=== PATIENT | female | born 1950 | race Caucasian/White ===

== ENCOUNTER → 2018-03-21 | Outpatient (CLI) | payer BC, MEDICARE ==
--- NOTE | 2018-03-25 12:51 | MM ---
Reason for exam: screening (asymptomatic). Last mammogram was performed 2 years and 7 months ago. History: Patient is postmenopausal. Taking estrogen for 17 years 2 months beginning at age 41. Physical Findings: A clinical breast exam by your physician is recommended on an annual basis and results should be correlated with mammographic findings. MG 3D Screening Mammo W/Cad Bilateral CC and MLO view(s) were taken. Prior study comparison: August 23, 2015, bilateral MG 3d screening mammo w/cad. March 10, 2014, bilateral MG screening mammo w CAD. The breast tissue is heterogeneously dense. This may lower the sensitivity of mammography. Finding: There is an equal density (isodense), indistinct oval mass in the middle position of the left breast consistent with possible summation. New finding since August 23, 2015 and March 10, 2014. ASSESSMENT: Incomplete: need additional imaging evaluation, BI-RAD 0 RECOMMENDATION: Special view mammogram of the left breast. If lesion persists on supplemental views, image directed ultrasound is recommended. [facility] will attempt to contact patient to return for supplemental views and ultrasound if indicated.
== END | disposition home or self-care (01) ==
LOC: RADMAMWWP 09:43
PROVIDERS: ATTEND Family Medicine
DX: Z12.31 Encounter for screening mammogram for malignant neoplasm of breast (principal)
CPT/HCPCS: 77063; 77067

== ENCOUNTER → 2018-04-04 | Outpatient (CLI) | payer MEDICARE ==
--- NOTE | 2018-04-04 14:55 | MM ---
Reason for exam: additional evaluation requested from abnormal screening. Last mammogram was performed less than 1 month ago. History: Patient is postmenopausal. Taking estrogen for 17 years 2 months beginning at age 41. Physical Findings: Nurse did not find any significant physical abnormalities on exam. MG 3D Work Up W/Cad LT ML and spot compression MLO view(s) were taken of the left breast. Prior study comparison: March 21, 2018, bilateral MG 3d screening mammo w/cad. August 23, 2015, bilateral MG 3d screening mammo w/cad. The breast tissue is heterogeneously dense. This may lower the sensitivity of mammography. Finding: There is a typically benign 7 mm equal density (isodense), circumscribed oval mass located 6 cm from the nipple in the middle position of the left breast. Finding is persistent since March 21, 2018. These results were verbally communicated with the patient and result sheet given to the patient on 04/04/18. ASSESSMENT: Incomplete: need additional imaging evaluation, BI-RAD 0 RECOMMENDATION: Ultrasound of the left breast.
--- NOTE | 2018-04-04 14:58 | USB ---
Reason for exam: additional evaluation requested from abnormal screening. History: Patient is postmenopausal. Taking estrogen for 17 years 2 months beginning at age 41. US Breast Workup Limited LT Left limited breast ultrasound including focal area of concern, retroareolar and axilla demonstrates a 0.6 x 0.3 x 0.4cm cystic lesion at 12 o'clock corresponds to mammographic finding, benign, a 0.7 x 0.5 x 0.7cm mixed lesion at 2 o'clock for which a biopsy is recommended, a 0.4 x 0.3 x 0.4cm mixed lesion at 3 o'clock, recommendation to be made on pathology correlation of the larger adjacent mass, a 0.5cm node at the axilla and a 0.4cm node at the axilla. These results were verbally communicated with the patient and result sheet given to the patient on 04/04/18. ASSESSMENT: Suspicious, BI-RAD 4 RECOMMENDATION: Ultrasound core biopsy of the left breast. Called Dr. Prasad with mammographic findings and has scheduled an appointment for the patient for 04/09/18 at 2:[address] Carvajal. PRELIMINARY REPORT CALLED AND FAXED TO DR. CARVAJAL ON 04/04/18.
== END | disposition home or self-care (01) ==
LOC: RADMAMWWP 10:11
PROVIDERS: ATTEND Family Medicine
DX: R92.8 Other abnormal and inconclusive findings on diagnostic imaging of breast (principal)
CPT/HCPCS: 77065; 76642; G0279; 77061

== ENCOUNTER → 2020-03-18 | Outpatient (CLI) | payer MEDICARE ==
--- NOTE | 2020-03-23 10:41 | MM ---
Reason for exam: screening (asymptomatic). Last mammogram was performed 1 year and 11 months ago. History: Patient is postmenopausal. Benign ultrasound-guided core biopsy of the left breast, 2018. Taking estrogen for 18 years 2 months beginning at age 41. Physical Findings: A clinical breast exam by your physician is recommended on an annual basis and results should be correlated with mammographic findings. MG 3D Screening Mammo W/Cad Bilateral CC and MLO view(s) were taken. Prior study comparison: April 04, 2018, left breast MG 3d work up w/cad LT. March 21, 2018, bilateral MG 3d screening mammo w/cad. The breast tissue is heterogeneously dense. This may lower the sensitivity of mammography. Finding: There is a 10 mm obscured oval mass located 7 cm from the nipple in the lower outer quadrant, middle position of the right breast on CC 15 and MLO /. Previous mammotome biopsy in the left breast. Asymmetric breast tissue in the left breast, stable. New finding since April 04, 2018 and March 21, 2018. ASSESSMENT: Incomplete: need additional imaging evaluation, BI-RAD 0 RECOMMENDATION: Ultrasound of the right breast. [facility] will attempt to contact patient to return for ultrasound.
== END | disposition home or self-care (01) ==
LOC: RADMAMWWP 15:32
PROVIDERS: ATTEND Family Medicine
DX: Z12.31 Encounter for screening mammogram for malignant neoplasm of breast (principal)
CPT/HCPCS: 77063; 77067

== ENCOUNTER → 2020-03-31 | Outpatient (CLI) | payer MEDICARE ==
--- NOTE | 2020-04-01 10:08 | USB ---
Reason for exam: additional evaluation requested from abnormal screening. History: Patient is postmenopausal. Benign ultrasound-guided core biopsy of the left breast, 2018. Taking estrogen for 18 years 2 months beginning at age 41. Physical Findings: Nurse Summary: tenderness/prominent tissue noted at nipple right breast, all soft, movable (nurse ts). US Breast Workup Limited RT Right limited breast ultrasound including focal area of concern, retroareolar and axilla demonstrates a 5 x 2 x 5mm oval, mixed, hypoechoic lesion at o'clock possible debris filled cyst, 6 month follow up recommended, a 4 x 2 x 3mm lobular, cystic lesion at 9 o'clock and a 8 x 5 x 3mm lobular lesion at the posterior nipple, could be duct ectasia with debris within, 6 month follow up recommended. These results were verbally communicated with the patient and result sheet given to the patient on 03/31/20. ASSESSMENT: Probably benign, BI-RAD 3 RECOMMENDATION: Follow-up diagnostic mammogram and ultrasound of the right breast in 6 months.
== END | disposition home or self-care (01) ==
LOC: RADUSWWP 08:45
PROVIDERS: ATTEND Family Medicine
DX: R92.8 Other abnormal and inconclusive findings on diagnostic imaging of breast (principal)

== ENCOUNTER → 2020-11-11 | Outpatient (CLI) | payer MEDICARE ==
--- NOTE | 2020-11-12 11:44 | MM ---
Reason for exam: additional evaluation requested from prior study. Last mammogram was performed 8 months ago. History: Patient is postmenopausal. Benign ultrasound-guided core biopsy of the left breast, 2018. Taking estrogen for 18 years 2 months beginning at age 41. Physical Findings: Nurse did not find any significant physical abnormalities on exam. MG 3D Diag Mammo W/Cad MYLES Bilateral CC and MLO view(s) were taken. Prior study comparison: March 18, 2020, bilateral MG 3d screening mammo w/cad. April 04, 2018, left breast MG 3d work up w/cad LT. The breast tissue is heterogeneously dense. This may lower the sensitivity of mammography. Previous mammotome biopsy in the left breast. Benign oil cyst calcifications. 1.0cm oval nodularity inferior right breast stable for 6 months. Not better seen at 6 o'clock on the CC view. Otherwise, no significant change. These results were verbally communicated with the patient and result sheet given to the patient on 11/11/20. ASSESSMENT: Incomplete: need additional imaging evaluation, BI-RAD 0 RECOMMENDATION: Ultrasound of the right breast. (5-9 o'clock)
--- NOTE | 2020-11-12 11:47 | USB ---
Reason for exam: additional evaluation requested from abnormal screening. History: Patient is postmenopausal. Benign ultrasound-guided core biopsy of the left breast, 2018. Taking estrogen for 18 years 2 months beginning at age 41. US Breast Limited RT Right limited breast ultrasound including focal area of concern, retroareolar and axilla demonstrates a 0.6 x 0.5 x 0.8cm cystic cluster at 6 o'clock, corresponds to the mammographic finding, a 0.4 x 0.2 x 0.4cm stable, mixed lesion at 8 o'clock, a 0.4 x 0.3 x 0.3cm stable, mixed lesion at 9 o'clock and a 1.0 x 0.4 x 0.4cm stable, mixed lesion at the posterior nipple. 6 month follow up mammogram recommended. Scanned 6-9 o'clock. These results were verbally communicated with the patient and result sheet given to the patient on 11/11/20. ASSESSMENT: Probably benign, BI-RAD 3 RECOMMENDATION: Follow-up diagnostic mammogram of the right breast in 6 months.
== END | disposition home or self-care (01) ==
LOC: RADMAMWWP 13:37
PROVIDERS: ATTEND Family Medicine
DX: R92.8 Other abnormal and inconclusive findings on diagnostic imaging of breast (principal)
CPT/HCPCS: 77066; 76642; G0279; 77062

== ENCOUNTER → 2021-06-09 | Outpatient (CLI) | payer MEDICARE ==
--- NOTE | 2021-06-09 14:33 | MM ---
Reason for exam: follow-up at short interval from prior study. Last mammogram was performed 7 months ago. History: Patient is postmenopausal. Benign ultrasound-guided core biopsy of the left breast, 2018. Taking estrogen for 30 years beginning at age 41. Physical Findings: Nurse did not find any significant physical abnormalities on exam. MG 3D Diag Mammo W/Cad RT Spot compression CC, spot compression MLO, and ML view(s) were taken of the right breast. Prior study comparison: November 11, 2020, bilateral MG 3d diag mammo w/cad MYLES. March 31, 2020, right breast US breast workup limited RT. March 18, 2020, bilateral MG 3d screening mammo w/cad. March 21, 2018, bilateral MG 3d screening mammo w/cad. August 23, 2015, bilateral MG 3d screening mammo w/cad. The breast tissue is heterogeneously dense. This may lower the sensitivity of mammography. 9mm oval nodule 5-6 o'clock right breast is unchanged for 6 months but more defined from older priors. It persists at a low density circumscribed nodule on spot 3D. These results were verbally communicated with the patient and result sheet given to the patient on 06/09/21. ASSESSMENT: Incomplete: need additional imaging evaluation, BI-RAD 0 RECOMMENDATION: Ultrasound of the right breast. (5-7 o'clock)
--- NOTE | 2021-06-09 14:36 | USB ---
Reason for exam: additional evaluation requested from abnormal screening. History: Patient is postmenopausal. Benign ultrasound-guided core biopsy of the left breast, 2018. Taking estrogen for 30 years beginning at age 41. US Breast Limited RT Right limited breast ultrasound including focal area of concern, retroareolar and axilla demonstrates a 10 x 6 x 6mm lobular, cystic cluster at 6 o'clock versus 8 x 6 x 4mm previously, a 5 x 2 x 3mm oval, hypoechoic lesion at 7 o'clock, not seen previously, 6 month follow up recommended and a 8 x 8mm lobular, hypoechoic lesion at the posterior nipple, possible debris filled duct, 6 month follow up recommended. Scanned 5-7 o'clock. These results were verbally communicated with the patient and result sheet given to the patient on 06/09/21. ASSESSMENT: Probably benign, BI-RAD 3 RECOMMENDATION: Follow-up diagnostic mammogram of both breasts in 5 months. Ultrasound of the right breast in 5 months. Back on schedule for October 2021.
== END | disposition home or self-care (01) ==
LOC: RADMAMWWP 12:53
PROVIDERS: ATTEND Family Medicine
DX: R92.8 Other abnormal and inconclusive findings on diagnostic imaging of breast (principal)
CPT/HCPCS: 77065; 76642; G0279; 77061

== ENCOUNTER → 2021-12-27 | Outpatient (CLI) | payer MEDICARE ==
--- NOTE | 2021-12-27 14:46 | MM ---
Reason for exam: additional evaluation requested from prior study. Last mammogram was performed 7 months ago. History: Patient is postmenopausal. Benign ultrasound-guided core biopsy of the left breast, 2018. Taking estrogen for 31 years beginning at age 41. Physical Findings: A clinical breast exam by your physician is recommended on an annual basis and results should be correlated with mammographic findings. MG 3D Diag Mammo W/Cad MYLES Bilateral CC and MLO view(s) were taken. Prior study comparison: June 09, 2021, right breast MG 3d diag mammo w/cad RT. November 11, 2020, bilateral MG 3d diag mammo w/cad MYLES. March 18, 2020, bilateral MG 3d screening mammo w/cad. March 21, 2018, bilateral MG 3d screening mammo w/cad. The breast tissue is heterogeneously dense. This may lower the sensitivity of mammography. There is chronic nodularity in the right breast. The previous right nodule has resolved. Benign bilateral oil cyst calcifications. These results were verbally communicated with the patient and result sheet given to the patient on 12/27/21. ASSESSMENT: Incomplete: need additional imaging evaluation, BI-RAD 0 RECOMMENDATION: Ultrasound of the right breast. (follow up from previous)
--- NOTE | 2021-12-27 14:48 | USB ---
Reason for exam: follow-up at short interval from prior study. History: Patient is postmenopausal. Benign ultrasound-guided core biopsy of the left breast, 2018. Taking estrogen for 31 years beginning at age 41. US Breast Limited RT Right limited breast ultrasound including focal area of concern, retroareolar and axilla demonstrates a 4 x 2 x 3mm oval, hypoechoic lesion at 7 o'clock smaller in size versus 5 x 2 x 3mm previously, stable even back to 03/31/20, benign. The other 6 o'clock cyst cluster has resolved. Scanned 5-7 o'clock and axilla. These results were verbally communicated with the patient and result sheet given to the patient on 12/27/21. ASSESSMENT: Benign, BI-RAD 2 RECOMMENDATION: Routine screening mammogram of both breasts in 1 year.
== END | disposition home or self-care (01) ==
LOC: RADMAMWWP 12:50
PROVIDERS: ATTEND Family Medicine
DX: R92.8 Other abnormal and inconclusive findings on diagnostic imaging of breast (principal); Z78.0 Asymptomatic menopausal state
CPT/HCPCS: 77066; 76642; G0279; 77062

== ENCOUNTER → 2023-02-27 | Outpatient (CLI) | payer MEDICARE ==
--- NOTE | 2023-02-28 09:04 | MM ---
Reason for Exam: Screening (asymptomatic). Last mammogram was performed 1 year(s) and 2 month(s) ago. Patient History: Menarche at age 14. First Full-Term at age 22. Left ovary removed at age 41. Right ovary removed at age 41. Hysterectomy at age 41. Postmenopausal. Currently using Estrogen, beginning at age 41 for 31 years. 2018, Benign Ultrasound-Guided Core Biopsy on the left side. Risk Values: Erika 5 year model risk: 1.8%. NCI Lifetime model risk: 5.3%. Prior Study Comparison: 11/11/2020 Bilateral Diagnostic Mammogram, [facility]. 06/09/2021 Right Diagnostic Mammogram, [facility]. 12/27/2021 Bilateral Diagnostic Mammogram, [facility]. Tissue Density: The breast tissue is heterogeneously dense. This may lower the sensitivity of mammography. Findings: Analyzed By CAD. No suspicious group of microcalcifications within either breast. Previous mammotome biopsy left breast. Benign-appearing calcifications within both breasts. Asymmetry demonstrated within the left breast at posterior depth slightly laterally only on the CC view. Focal asymmetry demonstrated within the right breast anterior depth at 9:00. Overall Assessment: Incomplete: need additional imaging evaluation, BI-RAD 0 Management: Diagnostic Mammogram of both breasts. A clinical breast exam by your physician is recommended on an annual basis and results should be correlated with mammographic findings. [facility] will attempt to contact patient to return for supplemental views and ultrasound if indicated. Electronically signed and approved by: Enio Charles D.O.
== END | disposition home or self-care (01) ==
LOC: RADMAMWWP 16:13
PROVIDERS: ATTEND Family Medicine
DX: Z12.31 Encounter for screening mammogram for malignant neoplasm of breast (principal); Z78.0 Asymptomatic menopausal state
CPT/HCPCS: 77063; 77067

== ENCOUNTER → 2023-03-06 | Outpatient (CLI) | payer MEDICARE ==
--- NOTE | 2023-03-06 10:45 | MM ---
Reason for Exam: Additional evaluation requested from abnormal screening. Last screening mammogram was performed less than 1 month ago. Patient History: Menarche at age 14. First Full-Term at age 22. Left ovary removed at age 41. Right ovary removed at age 41. Hysterectomy at age 41. Postmenopausal. Currently using Estrogen, beginning at age 41 for 31 years. 2018, Benign Ultrasound-Guided Core Biopsy on the left side. Risk Values: Erika 5 year model risk: 1.8%. NCI Lifetime model risk: 5.3%. Prior Study Comparison: 03/21/2018 Bilateral Screening Mammogram, [facility]. 04/04/2018 Left Diagnostic Mammogram, [facility]. 03/18/2020 Bilateral Screening Mammogram, [facility]. 11/11/2020 Bilateral Diagnostic Mammogram, [facility]. 06/09/2021 Right Diagnostic Mammogram, [facility]. 12/27/2021 Bilateral Diagnostic Mammogram, [facility]. 02/27/2023 Bilateral MG 3D screening mammo w/cad, [facility]. Tissue Density: The breast tissue is heterogeneously dense. This may lower the sensitivity of mammography. Findings: Analyzed By CAD. 6 mm circumscribed isodense nodule lateral anterior right breast persists on additional views. We note that it is slightly larger from the 2020 exam. Underlying fluctuating cyst is suspected. 6 month follow-up to reassess. On the left, the vague density central outer aspect on the CC view does not persist. Microclip from prior biopsy. Overall Assessment: Probably benign, BI-RAD 3 Management: Diagnostic Mammogram of the right breast in 6 months. . Results were given to the patient verbally at the time of exam. Patient should continue monthly self-breast exams. A clinical breast exam by your physician is recommended on an annual basis. This exam should not preclude additional follow-up of suspicious palpable abnormalities. Note on Erika scores and lifetime risk: 1. A Erika score greater than 3% is considered moderate risk. If this is the case, consider specialist referral to assess eligibility for a risk reducing agent. 2. If overall lifetime risk for the development of breast cancer is 20% or higher, the patient may qualify for future screening with alternating mammogram and breast MRI. Electronically signed and approved by: David Barnes M.D. Radiologist
== END | disposition home or self-care (01) ==
LOC: RADMAMWWP 10:08
PROVIDERS: ATTEND Family Medicine
DX: R92.8 Other abnormal and inconclusive findings on diagnostic imaging of breast (principal); Z78.0 Asymptomatic menopausal state
CPT/HCPCS: 77066; G0279; 77062

== ENCOUNTER → 2023-09-10 | Outpatient (CLI) | payer MEDICARE ==
--- NOTE | 2023-09-10 13:48 | MM ---
Reason for Exam: Follow-up at short interval from prior study. Last screening mammogram was performed 6 month(s) ago. Patient History: Menarche at age 14. First Full-Term at age 22. Left ovary removed at age 41. Right ovary removed at age 41. Hysterectomy at age 41. Postmenopausal. Currently using Estrogen, beginning at age 41 for 31 years. 2018, Benign Ultrasound-Guided Core Biopsy on the left side. Risk Values: Erika 5 year model risk: 1.8%. NCI Lifetime model risk: 5.1%. Prior Study Comparison: 12/27/2021 Bilateral Diagnostic Mammogram, [facility]. 02/27/2023 Bilateral MG 3D screening mammo w/cad, [facility]. 03/06/2023 Bilateral MG 3D work up w/cad MYLES, [facility]. Tissue Density: Right: There are scattered fibroglandular densities. Findings: Analyzed By CAD. No new suspicious masses, calcifications or distortions. Overall Assessment: Incomplete: need additional imaging evaluation, BI-RAD 0 Management: Diagnostic Breast Ultrasound of the right breast. Results were given to the patient verbally at the time of exam. Patient should continue monthly self-breast exams. A clinical breast exam by your physician is recommended on an annual basis. This exam should not preclude additional follow-up of suspicious palpable abnormalities. Note on Erika scores and lifetime risk: 1. A Erika score greater than 3% is considered moderate risk. If this is the case, consider specialist referral to assess eligibility for a risk reducing agent. 2. If overall lifetime risk for the development of breast cancer is 20% or higher, the patient may qualify for future screening with alternating mammogram and breast MRI. Electronically signed and approved by: Eduardo Paniagua DO
--- NOTE | 2023-09-10 13:50 | USB ---
Reason for Exam: Clinical finding. Patient History: Menarche at age 14. First Full-Term at age 22. Left ovary removed at age 41. Right ovary removed at age 41. Hysterectomy at age 41. Postmenopausal. Currently using Estrogen, beginning at age 41 for 31 years. 2018, Benign Ultrasound-Guided Core Biopsy on the left side. Risk Values: Erika 5 year model risk: 1.8%. NCI Lifetime model risk: 5.1%. Technique: Method: Targeted. Prior Study Comparison: 12/27/2021 Bilateral Diagnostic Mammogram, [facility]. 12/27/2021 Right Diagnostic Ultrasound, [facility]. 02/27/2023 Bilateral MG 3D screening mammo w/cad, [facility]. 03/06/2023 Bilateral MG 3D work up w/cad MYLES, [facility]. Findings: The upper inner quadrant of the left breast, the axilla of the left breast and the retroareolar of the left breast were scanned. Technique utilized:US breast limited LT Image; Ultrasound imaging of: Area of concern, retroareolar region and axilla. No evidence for organizing fluid collection or mass. Overall Assessment: Negative, BI-RAD 1 Management: Screening Mammogram of both breasts in 1 year. A clinical breast exam by your physician is recommended on an annual basis and results should be correlated with mammographic findings. This exam should not preclude additional follow-up of suspicious palpable abnormalities. Results were given to the patient verbally at the time of exam. Electronically signed and approved by: Eduardo Paniagua DO
== END | disposition home or self-care (01) ==
LOC: RADMAMWWP 12:53
PROVIDERS: ATTEND Family Medicine
DX: R92.321 Mammographic fibroglandular density, right breast (principal); Z78.0 Asymptomatic menopausal state
CPT/HCPCS: 77065; 76642; G0279; 77061

== ENCOUNTER → 2024-09-15 | Outpatient (CLI) | payer MEDICARE ==
--- NOTE | 2024-09-16 09:33 | MM ---
Reason for Exam: Screening (asymptomatic). Last mammogram was performed 1 year(s) and 7 month(s) ago. Patient History: Menarche at age 14. First Full-Term at age 22. Left ovary removed at age 41. Right ovary removed at age 41. Hysterectomy at age 41. Postmenopausal. Currently using Estrogen, beginning at age 41 for 31 years. 2018, Benign Ultrasound-Guided Core Biopsy on the left side. Risk Values: Erika 5 year model risk: 1.9%. NCI Lifetime model risk: 4.8%. Prior Study Comparison: 02/27/2023 Bilateral MG 3D screening mammo w/cad, [facility]. 03/06/2023 Bilateral MG 3D work up w/cad MYLES, [facility]. 09/10/2023 Right MG 3D diag mammo w/cad RT, [facility]. Tissue Density: The breasts are heterogeneously dense, which may obscure small masses. Findings: Analyzed By CAD. Unchanged 12:00 focal asymmetry on the left. Microclip left breast from prior biopsy. There is chronic bilateral nodularity and unchanged benign oil cyst calcification on either side. There is no suspicious group of microcalcifications or new suspicious mass in either breast. Overall Assessment: Benign, BI-RAD 2 Management: Screening Mammogram of both breasts in 1 year. Patient should continue monthly self-breast exams. A clinical breast exam by your physician is recommended on an annual basis. This exam should not preclude additional follow-up of suspicious palpable abnormalities. Note on Erika scores and lifetime risk: 1. A Erika score greater than 3% is considered moderate risk. If this is the case, consider specialist referral to assess eligibility for a risk reducing agent. 2. If overall lifetime risk for the development of breast cancer is 20% or higher, the patient may qualify for future screening with alternating mammogram and breast MRI. [facility], , 09/16/2024 9:30 AM. Electronically signed and approved by: David Barnes M.D. Radiologist
== END | disposition home or self-care (01) ==
LOC: RADMAMWWP 10:58
PROVIDERS: ATTEND Family Medicine
DX: Z12.31 Encounter for screening mammogram for malignant neoplasm of breast (principal); Z78.0 Asymptomatic menopausal state; Z90.722 Acquired absence of ovaries, bilateral; R92.333 Mammographic heterogeneous density, bilateral breasts
CPT/HCPCS: 77063; 77067